=== PATIENT | male | born 1970 | race Caucasian/White ===

== ENCOUNTER 2017-06-15 13:07 | Emergency (ER) ==
[2017-06-15 13:13] VITALS: BP 134/87; TEMP 99.2; BMI 23.3
[2017-06-15] MEDS ORDERED: TORADOL IM STA (13:28)
[2017-06-15] MEDS ORDERED: NORFLEX IM STA (13:29)
[2017-06-15] MEDS ORDERED: NORCO 10-325 PO STA (13:29)
--- NOTE | 2017-06-15 13:32 | ED.PDOC ---
General ED Provider: Dr. ELLIE LAWRENCE Chief Complaint: Back Pain Stated Complaint: back pain Time Seen by Physician: 13:10 Mode of Arrival: Walk-In Information Source: Patient Exam Limitations: No limitations Nursing and Triage Documentation Reviewed and Agree: Yes Reviewed sepsis parameters & appropriate labs ordered?: Yes System Inflammatory Response Syndrome: Not Applicable Sepsis Protocol: For patient's 13 years and over: Temp is 96.8 and below OR 101 and greater Pulse >90 BPM Resp >20/minute Acutely Altered Mental Status Are patient's symptoms suggestive of a new infection, such as: -Pneumonia -Skin, Soft Tissue -Endocarditis -UTI -Bone, Joint Infection -Implantable Device -Acute Abdominal Infection -Wound Infection -Meningitis -Blood Stream Catheter Infection -Unknown System Inflammatory Response Syndrome: Not Applicable Musculoskeletal Complaint Exam - Back Pain Complaint/Exam Mechanism of Injury: Reports: No known trauma (seen with robertn at all times ) Onset/Duration: 2 days Symptoms Are: Still present Timing: Constant Episodes Lasting: Hours Initial Severity: Moderate Current Severity: Moderate Location: Reports: Discrete Character: Reports: Aching Aggravating: Reports: Movements, Lifting, Bending, Walking Alleviating: Reports: Rest, Position Associated Signs and Symptoms: Denies: Swelling, Redness, Bruising, Fever, Weakness, Numbness, Tingling, Abdominal pain, Flank pain, Bladder incontinence, Bowel incontinence, Weight loss, Pain with weight bearing Related History: Reports: Similar episode TAD Risk Factors: Reports: None Cauda Equina Risk Factors: Reports: None Epidural Abcess Risk Factors: Reports: None Related Surgical History: Reports: None Focal Tenderness: No Paraspinal Muscle Tenderness: No Paraspinal Muscle Spasm: No Scoliosis: No Lordosis: No Kyphosis: No SLR Test: Right Negative, Left Negative Hip Motion Testing Pain: Right Negative, Left Negative Focal Weakness: Present: None Focal Sensory Loss: Present: None Gait: Present: Normal Differential Diagnoses: Arthritis, Strain, Sprain Review of Systems - Review Of Systems Constitutional: Reports: No symptoms Eyes: Reports: No symptoms Ears, Nose, Mouth, Throat: Reports: No symptoms Respiratory: Reports: No symptoms Cardiac: Reports: No symptoms GI: Reports: No symptoms : Reports: No symptoms Musculoskeletal: Reports: Back pain Skin: Reports: No symptoms Neurological: Reports: No symptoms Endocrine: Reports: No symptoms Hematologic/Lymphatic: Reports: No symptoms All Other Systems: Reviewed and Negative Past Medical History - Past Medical History Previously Healthy: Yes Endocrine: Reports: None Cardiovascular: Reports: None Respiratory: Reports: None Hematological: Reports: None Gastrointestinal: Reports: None Genitourinary: Reports: None Neuro/Psych: Reports: None Musculoskeletal: Reports: None Cancer: Reports: None - Surgical History General Surgical History: Reports: None - Family History Family History: Reports: None - Social History Smoking Status: Current every day smoker, Heavy tobacco smoker Hx Substance Use: No Alcohol Screening: None Physical Exam - Physical Exam Appearance: Well-appearing, No pain distress, Well-nourished Eyes: ELVIS, EOMI, Conjunctiva clear ENT: Ears normal, Nose normal, Oropharynx normal Respiratory: Airway patent, Breath sounds clear, Breath sounds equal, Respirations nonlabored Cardiovascular: RRR, Pulses normal, No rub, No murmur GI/: Soft, Nontender, No masses, Bowel sounds normal, No Organomegaly Musculoskeletal: Normal strength, ROM intact, No edema, No calf tenderness Skin: Warm, Dry, Normal color Neurological: Sensation intact, Motor intact, Reflexes intact, Cranial nerves intact, Alert, Oriented Psychiatric: Affect appropriate, Mood appropriate Critical Care Note - Critical Care Note Total Time (mins): 0 Course - Course Orders, Labs, Meds: Orders Category Date Time Status Hydrocodone Bit/Acetaminophen [[place] 10-325] MEDS 06/15/17 13:29 Stat 1 tab PO ONCE STA Ketorolac Tromethamine [Toradol] MEDS 06/15/17 13:28 Stat 60 mg IM ONCE STA Orphenadrine Citrate [Norflex] MEDS 06/15/17 13:29 Stat 60 mg IM ONCE STA Medications Discontinued Medications Generic Name Dose Route Start Last Admin Trade Name Freq PRN Reason Stop Dose Admin Hydrocodone Bitart/Acetaminophen 1 tab 06/15/17 13:29 [place] 10-325 PO 06/15/17 13:30 ONCE STA Ketorolac Tromethamine 60 mg 06/15/17 13:28 Toradol IM 06/15/17 13:29 ONCE STA Orphenadrine Citrate 60 mg 06/15/17 13:29 Norflex IM 06/15/17 13:30 ONCE STA Vital Signs: Temp Pulse Resp BP Pulse Ox 06/15/17 13:08 99.2 F 104 H 18 134/87 97 Departure - Departure Time of Disposition: 13:32 Disposition: HOME SELF-CARE Discharge Problem: Low back pain Qualifiers: Chronicity: acute Sciatica presence: with sciatica Sciatica laterality: sciatica of left side Instructions: Sciatica (ED), Lumbar Radiculopathy (ED), Lower Back Exercises ( ED), Acute Low Back Pain (ED) Condition: Good Pt referred to PMD for follow-up: Yes IPMP verified?: No Additional Instructions: Please call your Family Physician as soon as possible to schedule a follow-up appointment. Prescriptions: Hydrocodone/Acetaminophen [[place] 10-325 Tablet] 1 each PO Q8HR #10 tablet Allergies/Adverse Reactions: Allergies Bleach (Sodium Hypochlorite) Adverse Reaction (Verified 06/15/17 13:13) codeine Adverse Reaction (Verified 06/15/17 13:13) Home Medications: Ambulatory Orders Hydrocodone/Acetaminophen [[place] 10-325 Tablet] 1 each PO Q8HR #10 tablet Disposition Discussed With: Patient, Family
== END 2017-06-15 14:19 | disposition home or self-care (01) ==
LOC: ED 13:07
DX: M54.42 Lumbago with sciatica, left side (principal); F17.210 Nicotine dependence, cigarettes, uncomplicated
CPT/HCPCS: 96372; 99283

== ENCOUNTER 2017-08-11 06:44 | Emergency (ER) ==
[2017-08-11 06:54] VITALS: BP 135/86; TEMP 97.5; BMI 23.0
--- NOTE | 2017-08-11 07:28 | ED.PDOC ---
General ED Provider: Dr. JI LONGORIA Chief Complaint: Back Pain Stated Complaint: CC: Sharp Pain -mid upper back. HPI: Awakened from sleep approx 4 AM with Pain. No knowledge of potential causative event. Describes as sharp pain localized mid spinal segments 2-4. Knife, sharp like. No other associated symptoms. Time Seen by Physician: 07:15 Mode of Arrival: Walk-In Information Source: Patient Exam Limitations: No limitations Nursing and Triage Documentation Reviewed and Agree: Yes Reviewed sepsis parameters & appropriate labs ordered?: Yes System Inflammatory Response Syndrome: Not Applicable Sepsis Protocol: For patient's 13 years and over: Temp is 96.8 and below OR 101 and greater Pulse >90 BPM Resp >20/minute Acutely Altered Mental Status Are patient's symptoms suggestive of a new infection, such as: -Pneumonia -Skin, Soft Tissue -Endocarditis -UTI -Bone, Joint Infection -Implantable Device -Acute Abdominal Infection -Wound Infection -Meningitis -Blood Stream Catheter Infection -Unknown Musculoskeletal Complaint Exam - Back Pain Complaint/Exam Mechanism of Injury: Reports: No known trauma Onset/Duration: 4:00AM today Symptoms Are: Still present Timing: Constant Episodes Lasting: Hours Initial Severity: Moderate Current Severity: Moderate Location: Reports: Discrete Character: Reports: Sharp, Spasmodic Aggravating: Reports: Movements Alleviating: Reports: Rest Associated Signs and Symptoms: Denies: Swelling, Redness, Bruising, Fever, Weakness, Numbness, Tingling, Abdominal pain, Flank pain, Bladder incontinence, Bowel incontinence, Weight loss, Pain with weight bearing Related History: Denies: Similar episode, Occupational injury, Previous back injury TAD Risk Factors: Reports: None Cauda Equina Risk Factors: Reports: None Epidural Abcess Risk Factors: Reports: None Focal Tenderness: Yes Paraspinal Muscle Tenderness: Yes Paraspinal Muscle Spasm: Yes Scoliosis: No Lordosis: No Kyphosis: No SLR Test: Right Negative, Left Negative Hip Motion Testing Pain: Right Negative, Left Negative Focal Weakness: Present: None Focal Sensory Loss: Present: None Gait: Present: Normal Back Picture: 1 - Involved area of pain-spinous process to Rt Paravertebral mm region 2-4 Differential Diagnoses: Arthritis, Fracture, Neoplasm, Osteomyellitis, Strain, Sprain Review of Systems - Review Of Systems Constitutional: Reports: No symptoms Eyes: Reports: No symptoms Ears, Nose, Mouth, Throat: Reports: No symptoms Respiratory: Reports: No symptoms Cardiac: Reports: No symptoms GI: Reports: No symptoms : Reports: No symptoms Musculoskeletal: Reports: No symptoms Skin: Reports: No symptoms Neurological: Reports: No symptoms Endocrine: Reports: No symptoms Hematologic/Lymphatic: Reports: No symptoms All Other Systems: Reviewed and Negative Past Medical History - Past Medical History Previously Healthy: Yes Endocrine: Reports: None Cardiovascular: Reports: None Respiratory: Reports: None Hematological: Reports: None Gastrointestinal: Reports: None Genitourinary: Reports: None Neuro/Psych: Reports: None Musculoskeletal: Reports: Back Pain Cancer: Reports: None - Surgical History General Surgical History: Reports: None - Family History Family History: Reports: None - Social History Smoking Status: Current every day smoker, Heavy tobacco smoker Hx Substance Use: No Alcohol Screening: Occasionally - Immunizations Tetanus Shot up to Date: Yes Physical Exam - Physical Exam Appearance: Well-appearing, No pain distress (NO appearance of acute pain until exam by palpation ), Well-nourished Eyes: ELVIS, EOMI, Conjunctiva clear ENT: Ears normal, Nose normal, Oropharynx normal Respiratory: Airway patent, Breath sounds clear, Breath sounds equal, Respirations nonlabored Cardiovascular: RRR, Pulses normal, No rub, No murmur GI/: Soft, Nontender, No masses, Bowel sounds normal, No Organomegaly Musculoskeletal: Normal strength, ROM intact, No edema, No calf tenderness Skin: Warm, Dry, Normal color Neurological: Sensation intact, Motor intact, Reflexes intact, Cranial nerves intact, Alert, Oriented Psychiatric: Affect appropriate, Mood appropriate Re-Evaluation - Re-Evaluation Time of Re-Evaluation: 09:30 Status: Improved (Slight reduction in upper back pain -) Vital Signs Stable: Yes Appearance: NAD Neuro: Alert and Oriented X3 CV: RRR Critical Care Note - Critical Care Note Total Time (mins): 30 (Evaluated. monitored telemetry/Explained results and treatment recommendation) Course - Course Hematology/Chemistry: 08/11/17 07:55 08/11/17 07:55 Orders, Labs, Meds: Lab Review 08/11/17 08/11/17 08/11/17 07:55 07:55 07:55 WBC 4.47 RBC 4.36 L Hgb 15.7 Hct 44.3 MCV 101.6 H MCH 36.0 H MCHC 35.4 RDW Coeff of [place] 12.7 Plt Count 147 Neutrophils % (Manual) 44.0 Lymphocytes % (Manual) 37.0 Monocytes % (Manual) 13.0 H Eosinophils % (Manual) 2.0 Reactive Lymphocytes 4.0 Anisocytosis Not present ESR 8 Sodium 137 Potassium 4.2 Chloride 104 Carbon Dioxide 24 Anion Gap 13.2 BUN 5 L Creatinine 0.72 Estimated GFR (MDRD) 118.00 BUN/Creatinine Ratio 6.94 Glucose 104 H Calcium 9.3 Total Bilirubin 0.4 AST 135 H ALT 161 H Alkaline Phosphatase 67 Total Creatine Kinase 90 Total Protein 8.1 Albumin 3.6 Globulin 4.5 Albumin/Globulin Ratio 0.80 Plasma/Serum Alcohol 08/11/17 08:45 WBC RBC Hgb Hct MCV MCH MCHC RDW Coeff of [place] Plt Count Neutrophils % (Manual) Lymphocytes % (Manual) Monocytes % (Manual) Eosinophils % (Manual) Reactive Lymphocytes Anisocytosis ESR Sodium Potassium Chloride Carbon Dioxide Anion Gap BUN Creatinine Estimated GFR (MDRD) BUN/Creatinine Ratio Glucose Calcium Total Bilirubin AST ALT Alkaline Phosphatase Total Creatine Kinase Total Protein Albumin Globulin Albumin/Globulin Ratio Plasma/Serum Alcohol 60.3 Orders Category Date Time Status EKG-(ED ONLY) Stat CARDIO 08/11/17 09:33 Ordered CBC W/ AUTO DIFF Stat LAB 08/11/17 07:55 Completed CMP [COMPREHENSIVE METABOLIC PANEL] Stat LAB 08/11/17 07:55 Completed CPK [CREATINE KINASE] Stat LAB 08/11/17 07:55 Completed ESR Stat LAB 08/11/17 07:55 Completed ETOH LEVEL [BLOOD ALCOHOL] Stat LAB 08/11/17 08:45 Completed MANUAL DIFFERENTIAL Stat LAB 08/11/17 07:55 Completed Hydrocodone Bit/Acetaminophen [[place] 10-325] MEDS 08/11/17 08:56 Discontinued 1 tab PO ONCE STA Ketorolac Tromethamine [Toradol] MEDS 08/11/17 07:44 Discontinued 30 mg IM ONCE STA Orphenadrine Citrate [Norflex] MEDS 08/11/17 08:57 Discontinued 100 [address] PO ONCE [address]A CT THORACIC SPINE W/O CONTRAST Stat RADS 08/11/17 07:40 Completed Medications Discontinued Medications Generic Name Dose Route Start Last Admin Trade Name Freq PRN Reason Stop Dose Admin Hydrocodone Bitart/Acetaminophen 1 tab 08/11/17 08:56 08/11/17 09:14 [place] 10-325 PO 08/11/17 08:57 1 tab ONCE STA Administration Ketorolac Tromethamine 30 mg 08/11/17 07:44 08/11/17 07:51 Toradol IM 08/11/17 07:45 30 mg ONCE STA Administration Orphenadrine Citrate 100 mg 08/11/17 08:57 08/11/17 09:13 Norflex PO 08/11/17 08:58 100 mg ONCE STA Administration Vital Signs: Temp Pulse Resp BP Pulse Ox 08/11/17 06:45 97.5 F L 70 20 135/86 96 Departure - Departure Time of Disposition: 10:00 Disposition: HOME SELF-CARE Discharge Problem: Strain of thoracic spine, Strain of thoracic paraspinal muscles excluding T1 and T2 levels, Bradycardia, Liver enzyme elevation Instructions: Thoracic Pain (ED), Muscle Spasm (ED), Bradycardia (ED) Condition: Good Pt referred to PMD for follow-up: Yes (providers suggested) IPMP verified?: Yes (appropriate) Additional Instructions: Take Meds as directed Select Primary care physician for follow up evaluation of pain and to further evaluate Abnormal lab(liver enzyme elevation ) and blood glucose elevation and intermittent slowing of heart rate(BRADYCARDIA) AVOID USE OF ALCOHOL PRODUCTS and any potential liver toxins Use Pain meds as directed. If pain worsens Return to ER Prescriptions: Hydrocodone Bit/Acetaminophen [[place] 10-325] 1 each PO Q6HR PRN #10 tablet PRN Reason: Back pain Ketorolac Tromethamine [Toradol] 10 mg PO Q6H PRN #20 tablet PRN Reason: Relief of upper back pain Orphenadrine Citrate 100 mg PO BID PRN #10 tablet.er PRN Reason: Relief of Back Pain Allergies/Adverse Reactions: Allergies Bleach (Sodium Hypochlorite) Adverse Reaction (Verified 08/11/17 06:53) Hives codeine Adverse Reaction (Verified 08/11/17 06:53) Hives Home Medications: Ambulatory Orders Hydrocodone Bit/Acetaminophen [[place] 10-325] 1 each PO Q6HR PRN #10 tablet 08/11 Ketorolac Tromethamine [Toradol] 10 mg PO Q6H PRN #20 tablet 08/11/17 Orphenadrine Citrate 100 mg PO BID PRN #10 tablet.er 08/11/17 Disposition Discussed With: Patient (Patient indicates tolerated NORCO from previous treatment)
[2017-08-11] MEDS ORDERED: TORADOL IM STA (07:44)
--- NOTE | 2017-08-11 08:23 | CT ---
EXAM: CT of the thoracic spine without contrast History: Thoracic spine pain. Technique: Multiplanar CT images through the thoracic spine were obtained without the administration of IV contrast Findings: The visualized lungs are free of consolidation. Calcified granulomas are seen within the thorax. No acute fracture or subluxation of the thoracic spine. Disc space heights are relatively preserved. The bony spinal canal is not compromised. Impression: No acute osseous abnormality of the thoracic spine and no significant degenerative garcia es.
[2017-08-11] MEDS ORDERED: NORCO 10-325 PO STA (08:56)
[2017-08-11] MEDS ORDERED: NORFLEX PO STA (08:57)
== END 2017-08-11 10:34 | disposition home or self-care (01) ==
LOC: ED 06:44
DX: S29.012A Strain of muscle and tendon of back wall of thorax, initial encounter (principal); R00.1 Bradycardia, unspecified; R74.8 Abnormal levels of other serum enzymes; F17.210 Nicotine dependence, cigarettes, uncomplicated
CPT/HCPCS: 36415; 80053; 80307; 82550; 85007; 85025; 85651; 93005; 93010; 96372; 99283

== ENCOUNTER 2017-11-14 14:49 | Emergency (ER) ==
[2017-11-14 14:53] VITALS: BP 161/104; TEMP 98.3; BMI 21.4
[2017-11-14] MEDS ORDERED: MOTRIN PO STA (15:04)
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
--- NOTE | 2017-11-14 21:53 | DI ---
EXAM: Right knee, four views HISTORY: Injury COMPARISON: 06/27/2007 FINDINGS: There are changes of previous orthopedic intervention. There is a plate and screw fixatio n posterior medial proximal tibia. There are also two intact threaded screws extending transversely medial lateral to the metaphysis of the proximal tibia. There is probable chondrocalcinosis or degenerate change of the lateral meniscus. Osteophyte formati on seen involving femoral condyles. Impression 1. Changes of previous internal fixation proximal right tibia. Hardware intact. 2. No acute fracture. 3. Minimal soft tissue swelling medial knee. There is some the linear calcification adjacent medial femoral condyle, possible prior medial collateral ligament strain or injury, unchanged
== END 2017-11-14 16:26 | disposition home or self-care (01) ==
LOC: ED 14:49
DX: M25.561 Pain in right knee (principal); W18.42XA Slipping, tripping and stumbling without falling due to stepping into hole or opening, initial encounter; F17.210 Nicotine dependence, cigarettes, uncomplicated
CPT/HCPCS: 99283